=== PATIENT | female | born 1955 | race Caucasian/White ===

== ENCOUNTER 2017-09-18 12:24 | Day surgery (SDC) | payer OTHER ==
[2017-09-18 13:01] VITALS: RESP 16; TEMP 97.9
[2017-09-18] MEDS ORDERED: LACTATED RINGERS 1,000 ML IV ONE (13:07)
[2017-09-18] MEDS ORDERED: PROPOFOL 10 MG/ML 20 ML VIAL IV ONE (13:08)
[2017-09-18] MEDS ORDERED: LIDOCAINE 1% 20 ML VIAL (10MG/ML) FOR IV START INTRADERMA ONE (13:08)
--- NOTE | 2017-09-18 13:10 | P.GSHP ---
History of Present Illness H&P Date: 09/18/17 Chief Complaint: GERD, aspiration pneumonia This a 7-year-old female well-known to myself. Patient had a previous history of sleeve gastrectomy performed through 4 years ago. Patient had a recent hospital position to [facility] for pneumonia. She states that she's had some trouble with dysphagia complaints of epigastric pain. Patient presents today for EGD to evaluate her gastric sleeve Past Medical History Past Medical History: Asthma, Cancer, Diabetes Mellitus, GERD/Reflux, GI Bleed, Hyperlipidemia, Hypertension Additional Past Medical History / Comment(s): VOMITING AND HEART BURN, ESOPHAGEAL BLEED. ANEMIA/CHRONIC LYMPHOCYTIC LEUKEMIA. SEASONAL ALLERGIES., VARICOSE VEINS,ORAL STEROIDS JANUARY 2016 History of Any Multi-Drug Resistant Organisms: MRSA Date of last positivie culture/infection: 2011 MDRO Source:: left axilla Past Surgical History: Bariatric Surgery, Bladder Surgery, Bowel Resection, Hysterectomy, Orthopedic Surgery Additional Past Surgical History / Comment(s): GASTRIC SLEEVE. RIGHT KNEE ARTHROSCOPY, ORIF LEFT SHOULDER. HEMMOROIDS. PELVIC MASS REMOVED, WITH COLON RESECTION AND OVARIES REMOVED (BENIGN). Additional Past Anesthesia/Blood Transfusion Reaction / Comment(s): difficulty waking up one time.no problem with prior blood transfusion. Past Psychological History: Depression Smoking Status: Former smoker Past Alcohol Use History: Rare Additional Past Alcohol Use History / Comment(s): QUIT: 2009 SMOKED FOR 20 YRS. PPD: 2 Past Drug Use History: None Reported - Past Family History Mother Family Medical History: Hypertension Father Family Medical History: Diabetes Mellitus Medications and Allergies Home Medications Medication Instructions Recorded Confirmed Type Albuterol Nebulized [Ventolin 1 dose INHALATION QID PRN 03/07/16 03/27/16 History Nebulized] Albuterol Sulfate [Proventil Hfa] 2 puff INHALATION Q4H PRN 03/07/16 03/27/16 History Aspirin 81 mg PO DAILY 03/07/16 03/27/16 History Atorvastatin [Lipitor] 20 mg PO HS 03/07/16 03/27/16 History Budesonide [Pulmicort] 1 dose INHALATION BID 03/07/16 03/27/16 History Budesonide/Formoterol Fumarate 2 puff INHALATION BID 03/07/16 03/27/16 History [Symbicort 160-4.5 Mcg Inhaler] Docusate [Colace] 1 cap PO BID 03/07/16 03/27/16 History FLUoxetine HCL [PROzac] 40 mg PO QAM 03/07/16 03/27/16 History Ferrous Sulfate [Iron (65 MG 1 tab PO BID 03/07/16 03/27/16 History Elemental)] HYDROcodone/APAP 10-325MG [[place] 1 tab PO DAILY PRN 03/07/16 03/27/16 History 10-325] Hydrochlorothiazide 25 mg PO QAM 03/07/16 03/27/16 History Ibuprofen [Motrin] 800 mg PO BID 03/07/16 03/27/16 History Montelukast [Singulair] 10 mg PO HS 03/07/16 03/27/16 History Multivitamins, Thera [Multivitamin] 1 tab PO DAILY 03/07/16 03/27/16 History Omeprazole 40 mg PO AC-BRKFST #30 cap 03/12/16 03/27/16 Rx Calcium Citrate 250 mg PO BID 03/23/16 03/27/16 History Cyclobenzaprine [Flexeril] 10 mg PO HS 03/23/16 03/27/16 History HYDROcodone/APAP 7.5-325MG [[place] 1 each PO Q4H PRN #60 tab 03/27/16 Rx 7.5] Allergies Allergy/AdvReac Type Severity Reaction Status Date / Time bendamustine HCl Allergy Rash/Hives Verified 09/18/17 12:55 [From Treanda] codeine Allergy Rash/Hives Verified 09/18/17 12:55 rituximab [From Rituxan] Allergy Rash/Hives Verified 09/18/17 12:55 sulfamethoxazole Allergy Rash/Hives Verified 09/18/17 12:55 [From Bactrim] trimethoprim [From Bactrim] Allergy Rash/Hives Verified 09/18/17 12:55 Surgical - Exam Vital Signs Temp Pulse Resp BP Pulse Ox 97.9 F 75 16 147/77 94 L 09/18/17 13:00 09/18/17 13:00 09/18/17 13:00 09/18/17 13:00 09/18/17 13:00 - General well developed, no distress - Eyes PERRL - ENT normal pinna - Neck no masses - Respiratory normal expansion - Cardiovascular Rhythm: regular - Abdomen Mild epigastric tenderness Abdomen: soft Assessment and Plan Assessment: Mr. gastric sleeve History of dysphagia. We'll perform EGD.
[2017-09-18 13:12] LABS: Glucose,Whole Blood 164 mg/dL (75-99)
--- NOTE | 2017-09-18 13:21 | P.OP ---
Date of Procedure: 09/18/17 Preoperative Diagnosis: GERD Dysphagia Postoperative Diagnosis: Mild antral gastritis Severe esophagitis No evidence of sleeve stricture Procedure(s) Performed: EGD Anesthesia: MAC Surgeon: Collins Adam Pathology: other (Antrum, esophagus) Condition: stable Disposition: PACU Description of Procedure: The patient's placed on the endoscopy table in the lateral position. She received IV sedation. The gastric was placed patient's oropharynx and passed into the esophagus and stomach. The scope was then placed through the pylorus. The first and second portion of the duodenum appeared normal. The scope was then brought back into the antrum and this appeared minimally inflamed a biopsies performed. Scope was then brought back through the gastric sleeve. There is no incision any stricture or obstruction of the sleeve. The GE junction was at 38 cm.. The distal esophagus appeared grossly inflamed. This area is biopsied. There is evidence of a slight stricture of the GE junction due to reflux esophagitis. Several biopsies esophagus or performed. The proximal esophagus appeared normal. Scope was withdrawn for patient.
[2017-09-18] MEDS ORDERED: SUCRALFATE 1 GM TAB PO STA (13:32)
[2017-09-18 13:38] VITALS: BP 131/73; PULSE 84
== END 2017-09-18 14:23 | disposition home or self-care (01) ==
LOC: ORWHC2ENDO 12:24
PROVIDERS: ATTEND Surgery
DX: K29.50 Unspecified chronic gastritis without bleeding (principal); K22.10 Ulcer of esophagus without bleeding; K21.0 Gastro-esophageal reflux disease with esophagitis; Z98.84 Bariatric surgery status; E11.9 Type 2 diabetes mellitus without complications; E78.5 Hyperlipidemia, unspecified; I10 Essential (primary) hypertension; F32.9 Major depressive disorder, single episode, unspecified; J44.9 Chronic obstructive pulmonary disease, unspecified; Z86.14 Personal history of Methicillin resistant Staphylococcus aureus infection; Z79.1 Long term (current) use of non-steroidal anti-inflammatories (NSAID); Z79.82 Long term (current) use of aspirin; Z79.51 Long term (current) use of inhaled steroids; Z79.899 Other long term (current) drug therapy; Z88.1 Allergy status to other antibiotic agents; Z88.2 Allergy status to sulfonamides; Z88.8 Allergy status to other drugs, medicaments and biological substances; Z87.891 Personal history of nicotine dependence
CPT/HCPCS: 88305; 88342; 43239; J2704

== ENCOUNTER → 2018-01-15 | Outpatient (CLI) | payer OTHER ==
[2018-01-15 10:13] LABS: Basophils # (A) 0.1 k/uL (0-0.2); Basophils % (A) 0 %; Eosinophils # (A) 0.1 k/uL (0-0.7); Eosinophils % (A) 0 %; HCT 39.4 % (34.0-46.0); HGB 11.8 gm/dL (11.4-16.0); Hypochromasia Moderate; Lymphocytes # (A) 2.8 k/uL (1.0-4.8); Lymphocytes % (A) 17 %; MCH 27.3 pg (25.0-35.0); MCHC 30.1 g/dL (31.0-37.0); MCV 90.8 fL (80.0-100.0); Mean Platelet Volume 6.8; Monocytes # (A) 0.5 k/uL (0-1.0); Monocytes % (A) 3 %; Neutrophils # (A) 12.5 k/uL (1.3-7.7); Neutrophils % (A) 78 %; Platelet Count 327 k/uL (150-450); RBC 4.34 m/uL (3.80-5.40); RDW 14.2 % (11.5-15.5); WBC 16.1 k/uL (3.8-10.6)
[2018-01-15 10:16] LABS: Appearance,Urine Clear (Clear); Bilirubin,Urine Negative (Negative); Blood,Urine Small (Negative); Color,Urine Yellow; Glucose,Urine (UA) Negative (Negative); Ketones,Urine Negative (Negative); Leukocyte Esterase,Urine Trace (Negative); Mucus,Urine Few /hpf; Nitrite,Urine Negative (Negative); Protein,Urine Trace (Negative); RBC,Urine 14 /hpf (0-5); Specific Gravity,Urine 1.031 (1.001-1.035); Squamous Epithelial Cell,Urine 4 /hpf (0-4); WBC,Urine 3 /hpf (0-5)
[2018-01-15 10:40] LABS: Anion Gap 10 mmol/L; Blood Urea Nitrogen 19 mg/dL (7-17); Carbon Dioxide 34 mmol/L (22-30); Chloride 95 mmol/L (98-107); Glucose 140 mg/dL (74-99); Potassium 4.3 mmol/L (3.5-5.1); Sodium 139 mmol/L (137-145)
--- NOTE | 2018-01-15 11:13 | XR ---
EXAMINATION TYPE: XR chest 2V DATE OF EXAM: 01/15/2018 COMPARISON: None HISTORY: 62-year-old female presurgical testing for spine TECHNIQUE: Frontal and lateral views FINDINGS: Clinical data screw fixation proximal left humerus. Accentuated mid thoracic kyphosis likely secondar y to vertebral compression deformities. Osteopenia limits assessment on this long exposure. Heart upper limits of normal in size. Mild elongation of the thoracic aorta. Mild diffuse interstitia l prominence is a chronic appearance. Strandy areas of atelectasis mid to lower left lung. No tatiana c onsolidation or pleural effusion seen. IMPRESSION: 1. Chronic appearing changes with strandy areas of atelectasis on the left. No definite acute process . 2. Accentuated mid thoracic kyphosis secondary to vertebral compression deformities.
== END | disposition home or self-care (01) ==
LOC: LABPAT 09:21
PROVIDERS: ATTEND Orthopaedic Surgery Orthopaedic Surgery of the Spine
DX: Z01.818 Encounter for other preprocedural examination (principal); S22.050A Wedge compression fracture of T5-T6 vertebra, initial encounter for closed fracture; J98.11 Atelectasis; S22.060A Wedge compression fracture of T7-T8 vertebra, initial encounter for closed fracture; M40.294 Other kyphosis, thoracic region; Z79.01 Long term (current) use of anticoagulants
CPT/HCPCS: 36415; 71046; 80048; 81001; 85025; 85610; 85730; 86850; 86900; 86901

== ENCOUNTER → 2018-01-21 | Outpatient (CLI) | payer MEDICARE, OTHER ==
[2018-01-21 12:11] LABS: HCT 36.9 % (34.0-46.0); HGB 11.2 gm/dL (11.4-16.0); Hypochromasia Moderate; MCH 27.8 pg (25.0-35.0); MCHC 30.4 g/dL (31.0-37.0); MCV 91.4 fL (80.0-100.0); Mean Platelet Volume 7.2; Platelet Count 340 k/uL (150-450); RBC 4.03 m/uL (3.80-5.40); RDW 14.9 % (11.5-15.5)
[2018-01-21 12:18] LABS: Appearance,Urine Clear (Clear); Bacteria,Urine Rare /hpf; Bilirubin,Urine Negative (Negative); Blood,Urine Negative (Negative); Color,Urine Yellow; Glucose,Urine (UA) 2+ (Negative); Hyaline Casts,Urine 14 /lpf (0-2); Ketones,Urine Negative (Negative); Leukocyte Esterase,Urine Trace (Negative); Mucus,Urine Rare /hpf; Nitrite,Urine Negative (Negative); PH, Urine 6.5 (5.0-8.0); Protein,Urine 1+ (Negative); RBC,Urine 3 /hpf (0-5); Specific Gravity,Urine 1.022 (1.001-1.035); Squamous Epithelial Cell,Urine 4 /hpf (0-4); WBC,Urine 2 /hpf (0-5)
== END | disposition home or self-care (01) ==
LOC: LABPAT 11:44
PROVIDERS: ATTEND Orthopaedic Surgery Orthopaedic Surgery of the Spine
DX: Z01.812 Encounter for preprocedural laboratory examination (principal)
CPT/HCPCS: 36415; 81001; 85027

== ENCOUNTER 2018-01-22 12:11 | Day surgery (SDC) | payer MEDICARE, OTHER ==
[2018-01-20 10:08] VITALS: BMI 35.0
[~2018-01-22 12:11] MED LIST: HYDROmorphone 0.5 MG/0.5 ML SYRINGE IVP PRN; LIDOCAINE 1% 20 ML VIAL (10MG/ML) FOR IV START INTRADERMA PRN; ONDANSETRON 4 MG/2 ML VIAL IVP ONE; SCOPOLAMINE 1.5MG/72HR PATCH TRANSDERM ONE; ceFAZolin IN SWFI 2 GM/20 ML SYRINGE IVP ONE
[2018-01-22] MEDS: LACTATED RINGERS 1,000 ML IV SCH (13:45)
[2018-01-22] MEDS ORDERED: HYDROmorphone 1 MG/ML 1 ML SYRINGE IVP ONE (13:53)
[2018-01-22 14:16] LABS: Glucose,Whole Blood 166 mg/dL (75-99)
[2018-01-22] MEDS ORDERED: IOHEXOL 350 MG/ML 50ML BOTTLE MISCELLANE ONE (16:51)
[2018-01-22] MEDS ORDERED: fentaNYL (PF) 50 MCG/ML 2 ML AMP ONE (16:57)
[2018-01-22] MEDS ORDERED: ALBUTEROL INHALER 60 PUFF/8 GM INHALER INHALATION ONE (16:57)
[2018-01-22] MEDS ORDERED: HYDROCORTISONE SUCCINATE 100 MG/2 ML VIAL ONE (16:57)
[2018-01-22] MEDS ORDERED: SUCCINYLCHOLINE CHLORIDE 100 MG/5 ML SYR IV ONE (16:57)
[2018-01-22] MEDS ORDERED: MIDAZOLAM 2 MG/2 ML VIAL ONE (16:57)
[2018-01-22] MEDS ORDERED: LIDOCAINE 1% INJ 10MG/ML (20 ML MDV) ONE (16:57)
[2018-01-22] MEDS ORDERED: PROPOFOL 10 MG/ML 20 ML VIAL IV ONE (16:57)
[2018-01-22] MEDS ORDERED: BUPIVACAINE (PF) 0.5% 30 ML VIAL SQ ONE ×2 (17:47)
[2018-01-22] MEDS ORDERED: HYDROmorphone 0.5 MG/0.5 ML SYRINGE IVP PRN (18:19)
[2018-01-22] MEDS ORDERED: DIAZEPAM 5 MG TAB PO PRN (18:19)
[2018-01-22] MEDS ORDERED: BENZOCAINE/MENTHOL LOZENG 1 EACH LOZENGE MUCOUS MEM PRN (18:19)
[2018-01-22] MEDS ORDERED: ONDANSETRON 4 MG/2 ML VIAL IVP PRN (18:20)
[2018-01-22] MEDS ORDERED: ALBUTEROL NEBULIZED 2.5 MG/3 ML INHALATION PRN (18:22)
--- NOTE | 2018-01-22 18:30 | P.OP ---
Date of Procedure: 01/22/18 Preoperative Diagnosis: T6 and T8 subacute vertebral compression fractures Thoracic back pain Osteoporosis Postoperative Diagnosis: Same Anesthesia: GETA Pathology: other (T6 and T8 vertebral body biopsy sent to pathology separately in formalin) Condition: stable Disposition: PACU Description of Procedure: BRIEF OPERATIVE NOTE Preoperative Diagnosis: Vertebral compression fractures T6 and T8, subacute osteoporotic Postoperative Diagnosis: Same Procedure: Kyphoplasty T6 and T8 Vertebral body biopsy T6 and T8 Use of biplanar fluoroscopic guidance Surgeon: Dr. Mosher Head Filter Press Tender: Sean Tran is present throughout the entire the case persistence during positioning, dissection, exposure, visualization, and all crucial elements of the case as well as closure. Anesthesia: General anesthesia Estimated blood loss: Less than 10 mL Specimen: Vertebral body biopsy sent to pathology in formalin separately of T6 and T8 vertebral bodies Complications: None apparent Components implanted: Bone cement Disposition: To recovery room in good stable condition. OPERATIVE INDICATIONS The patient has been having issues in their back ever since sustaining an injury. She has osteoporosis and has a chronic senile compression fracture at T7. She is found have subacute compression fractures at T6 and T8 which were felt to be the source of significant thoracic back pain for her. She has been having severe back pain despite brace use and conservative treatment and medications. The patient has been through conservative treatment. They attempted conservative care with bracing however they're not having any benefit despite brace use. They continue to have significant pain and debility due to their fracture. We discussed various treatment options including surgery, and the patient wishes to proceed with surgery We discussed the risk, patient's alternatives and benefits of surgery including but not limited to, risk of bleeding risk of infection, risk of need for further surgery, risk of decreased , loss of motion, loss of function, cement extravasation, nerve damage, paralysis, heart attack, blindness and . OPERATIVE SUMMARY After discussing all the risks, patient alternatives and benefits at length, the patient elected to proceed with surgical intervention, signed informed consent, and presented for their procedure. 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 She is found to be stable for the procedure. The patient was seen and examined in the preoperative holding area and the surgical site was marked. The patient was given antibiotics and brought to the operating room. The patient was sedated and intubated by anesthesia in with utilization of a glide scope and bronchoscope. The patient was positioned on to the operating room table in a prone position on the appropriate well-padded and well molded bilateral chest rolls. We were careful to pad any bony prominences and pressure points. We were careful to maintain the patient's cervical spine and good neutral alignment and position throughout. We used 2 C-arm machines to establish biplanar fluoroscopic guidance in AP and lateral positions. We were able to localize the fractures appropriately at T6, 7 and 8. The chronic senile compression fracture T7 was noted and the subacute compression fractures at T6 and T8 were also noted. The patient was prepped and draped in a normal standard fashion. An appropriate timeout and keystone protocol performed. We were able to proceed with the surgery. The local wound area was infiltrated with local anesthetic. An incision was made over the lateral aspect of the pedicle over the appropriate levels with a small 2 mm stab incision. I started first at T8 and then moved to T6. Intraoperative fluoroscopy was taken which showed a marker at the appropriate level at both T8 and T6. With the appropriate level positively confirmed, I was able to position a sharp trocar over the lateral aspect of the pedicle. As able to advance the trocar into the pedicle and into the posterior aspect of vertebral body being careful to avoid penetration cephalad caudad or medially. The trocar was placed appropriately into the posterior aspect of vertebral body at the appropriate levels on the right at T6 and T8. This was confirmed with C-arm guidance. With the trocar intact I was then able to take a bone biopsy with a biopsy punch or a bony drill. The biopsy specimen was passed off to be sent to pathology in formalin. I was then able to place the kyphoplasty balloon within the vertebral body. The position was checked on C-arm. I was able to inflate the balloon under low pressure and visualization with C-arm. The balloon started enclosed within the vertebral body but did show evidence of some penetration at the inferior endplate of both vertebral bodies. The cement was prepared. With the cement at appropriate working condition the balloons were deflated and removed. I was able to place bony cement with trocar with the cement delivery device under low pressure. It had some fill within the vertebral body. There is no evidence of any extravasation of the cement posteriorly toward the canal. The cement was injected at the appropriate levels of T6 and T8. Both areas had some placement of the cement within the vertebral body. Both there is also had some extrusion into the inferior endplate and into the disc space below. I was able place proximally 2 and half cc in each of the vertebral bodies The cement was allowed to cure appropriately. The trochars removed and final images were taken on C- arm. This showed the cement at the appropriate levels of T6 and T8 without evidence of extrusion posteriorly. We were able to proceed with closure. The wound was cleaned and dried and dressed with the appropriate dressing. The drapes were broken down. The patient was gently rolled back onto their hospital bed being careful to maintain their cervical spine and good neutral alignment and position. They were woken up by anesthesia, extubated, and brought to the recovery room in good stable condition. The patient will be admitted to the hospital for observation and for appropriate postoperative care, medical management and monitoring. We will continue to follow them closely about the postoperative course.
[2018-01-22] MEDS ORDERED: BUDESONIDE 0.5 MG/2 ML NEBU INHALATION SCH (20:00)
[2018-01-22] MEDS: HYDROmorphone 0.5 MG/0.5 ML SYRINGE IVP PRN ×2 (20:20→23:20)
[2018-01-22] MEDS: SODIUM CHLORIDE 0.9% 1,000 ML IV SCH (20:32)
[2018-01-22] MEDS: ALBUTEROL NEBULIZED 2.5 MG/3 ML INHALATION SCH (20:32)
[2018-01-22] MEDS: SYMBICORT 160-4.5 MCG INHALER INHALATION SCH (20:32)
[2018-01-22] MEDS ORDERED: ATORVASTATIN 20 MG TAB PO SCH (21:00)
[2018-01-22] MEDS: DOCUSATE 100 MG CAP PO SCH (21:37)
[2018-01-22] MEDS: CYCLOBENZAPRINE 10 MG TAB PO SCH (21:38)
[2018-01-22] MEDS: ceFAZolin IN SWFI 2 GM/20 ML SYRINGE IVP SCH (23:23)
[2018-01-23] MEDS: oxyCODONE-APAP 5-325MG 1 EACH TAB PO PRN ×2 (03:00→09:48)
[2018-01-23] MEDS: HYDROmorphone 0.5 MG/0.5 ML SYRINGE IVP PRN ×2 (04:14→08:03)
[2018-01-23] MEDS: SYMBICORT 160-4.5 MCG INHALER INHALATION SCH (07:23)
[2018-01-23] MEDS: ALBUTEROL NEBULIZED 2.5 MG/3 ML INHALATION SCH (07:23)
[2018-01-23 07:57] VITALS: BP 147/84; PULSE 82; RESP 14; TEMP 98.2
[2018-01-23] MEDS: LACTATED RINGERS 1,000 ML IV SCH (08:03)
[2018-01-23] MEDS: CYCLOBENZAPRINE 10 MG TAB PO SCH (08:03)
[2018-01-23] MEDS: SODIUM CHLORIDE 0.9% 1,000 ML IV SCH (08:15)
[2018-01-23] MEDS ORDERED: SENNOSIDES-DOCUSATE SODIUM 1 EACH TAB PO SCH (09:00)
[2018-01-23] MEDS ORDERED: ASPIRIN 81 MG PO SCH (09:00)
[2018-01-23] MEDS ORDERED: FERROUS SULFATE 325 MG TAB PO SCH (09:00)
[2018-01-23] MEDS ORDERED: FLUoxetine HCL 20 MG CAP PO SCH (09:00)
[2018-01-23] MEDS ORDERED: FUROSEMIDE 40 MG TAB PO SCH (09:00)
--- NOTE | 2018-01-23 09:28 | FL ---
Fluoroscopy INDICATION: Pain FINDINGS: Fluoroscopy time: 66 seconds. Images obtained: 4. IMPRESSIONS: 1. Documentation of fluoroscopy.
--- NOTE | 2018-01-23 09:28 | XR ---
EXAMINATION TYPE: XR thoracic spine 2V DATE OF EXAM: 01/22/2018 COMPARISON: NONE HISTORY: Kyphoplasty TECHNIQUE: Images were obtained intraoperatively. FINDINGS: 4 images are presented over the thoracic region. IMPRESSION: 1. Fluoroscopy for procedure documentation.
[2018-01-23] MEDS: ceFAZolin IN SWFI 2 GM/20 ML SYRINGE IVP SCH (09:44)
[2018-01-23] MEDS: DOCUSATE 100 MG CAP PO SCH (09:46)
--- NOTE | 2018-01-23 09:52 | P.DS ---
Providers Date of admission: January 22 2018 Attending physician: Jose C Mosher Primary care physician: [facility] Course: The patient presented on the day of admission as per her operative note. she underwent kyphoplasty at T8 and T6 for her subacute osteoporotic compression fractures and thoracic back pain which had failed conservative treatment. She says her upper back is feeling somewhat better but her lower Significant pain. She is not having any changes in her bowel bladder function. She's not having any changes in her lower extremity function. She denies any new neurologic changes. Physical Exam The incision site is clean dry and intact. There is no erythema no drainage. There is no purulence no evidence of infection. The 2 small incisions appear to be healing well. Abdomen soft and nontender. Chest has good excursion with deep inspiration and expiration. The patient has active and passive range of motion intact at the upper and lower extremities. There is no acute change in neurologic status. She has sustained dorsal flexion and plantar flexion and EHL at her lower extremities equal bilaterally Hospital Course Postoperative day #1 status post thoracic kyphoplasty at T6 and T8 for her subacute supra compression fractures. The patient has been making good progress postoperatively. Her thoracic pain seems to have improved with her procedure but she still has low back pain due to other issues being addressed further on outpatient basis at this point. They have completed the prophylactic antibiotics without any signs or symptoms of infection. The patient has been able to advance their diet, and is tolerating diet adequately. The pain was initially controlled with IV medications and is now controlled appropriately with oral medications. The patient has been able to increase their mobilization. The patient has progressed appropriately. I think they are in good stable condition for discharge today. They will be sent home with appropriate prescriptions. I answered their questions to the best of my ability in a language that they can understand and they are agreeable with the plan. They will follow up as directed in approximately 2 weeks or sooner if she is having problems. Patient Condition at Discharge: Fair Plan - Discharge Summary New Discharge Prescriptions: New oxyCODONE HCL/ACETAMINOPHEN [Percocet 5-325 mg] 1 tab PO Q8HR PRN #90 tab PRN Reason: Severe Pain No Action Multivitamins, Thera [Multivitamin] 1 tab PO DAILY Montelukast [Singulair] 10 mg PO HS Docusate [Colace] 1 cap PO BID Budesonide/Formoterol Fumarate [Symbicort 160-4.5 Mcg Inhaler] 2 puff INHALATION BID Atorvastatin [Lipitor] 20 mg PO HS Albuterol Sulfate [Proventil Hfa] 2 puff INHALATION Q4H PRN PRN Reason: Shortness Of Breath Or Wheezing Albuterol Nebulized [Ventolin Nebulized] 1 dose INHALATION BID Budesonide [Pulmicort] 1 dose INHALATION BID Cyclobenzaprine [Flexeril] 10 mg PO TID Omeprazole 40 mg PO BID #60 capsule.dr Oxybutynin Chloride [Ditropan] 5 mg PO DAILY Aspirin [Adult Low Dose Aspirin EC] 81 mg PO DAILY Pioglitazone [Actos] 15 mg PO DAILY Ferrous Sulfate [Iron (65 MG Elemental)] 325 mg PO DAILY Furosemide [Lasix] 40 mg PO DAILY Potassium Chloride [Klor-Con 10] 10 meq PO BID Insulin Detemir [Levemir] 12 unit SQ HS Losartan [Cozaar] 50 mg PO DAILY predniSONE 20 mg PO Q48H predniSONE 40 mg PO Q48H Ciprofloxacin HCl [Cipro] 500 mg PO BID Immunoglobulin 1 dose IV Q3M HYDROcodone/APAP 7.5-325MG [[place] 7.5-325] 1 tab PO Q8HR PRN PRN Reason: Pain Scale 6 To 10 FLUoxetine HCL [PROzac] 40 mg PO DAILY fentaNYL 25MCG/HR PATCH [Durages[place] 25MCG/HR] 1 patch TRANSDERM DIRECTED Discharge Medication List Albuterol Nebulized [Ventolin Nebulized] 1 dose INHALATION BID 03/07/16 [History ] Albuterol Sulfate [Proventil Hfa] 2 puff INHALATION Q4H PRN 03/07/16 [History] Atorvastatin [Lipitor] 20 mg PO HS 03/07/16 [History] Budesonide [Pulmicort] 1 dose INHALATION BID 03/07/16 [History] Budesonide/Formoterol Fumarate [Symbicort 160-4.5 Mcg Inhaler] 2 puff INHALATION BID 03/07/16 [History] Docusate [Colace] 1 cap PO BID 03/07/16 [History] Montelukast [Singulair] 10 mg PO HS 03/07/16 [History] Multivitamins, Thera [Multivitamin] 1 tab PO DAILY 03/07/16 [History] Cyclobenzaprine [Flexeril] 10 mg PO TID 03/23/16 [History] Omeprazole 40 mg PO BID #60 capsule. 09/18/17 [Rx] Aspirin [Adult Low Dose Aspirin EC] 81 mg PO DAILY 10/28/17 [History] Ferrous Sulfate [Iron (65 MG Elemental)] 325 mg PO DAILY 10/28/17 [History] Furosemide [Lasix] 40 mg PO DAILY 10/28/17 [History] Insulin Detemir [Levemir] 12 unit SQ HS 10/28/17 [History] Losartan [Cozaar] 50 mg PO DAILY 10/28/17 [History] Oxybutynin Chloride [Ditropan] 5 mg PO DAILY 10/28/17 [History] Pioglitazone [Actos] 15 mg PO DAILY 10/28/17 [History] Potassium Chloride [Klor-Con 10] 10 meq PO BID 10/28/17 [History] Ciprofloxacin HCl [Cipro] 500 mg PO BID 01/20/18 [History] Immunoglobulin 1 dose IV Q3M 01/20/18 [History] predniSONE 20 mg PO Q48H 01/20/18 [History] predniSONE 40 mg PO Q48H 01/20/18 [History] FLUoxetine HCL [PROzac] 40 mg PO DAILY 01/22/18 [History] HYDROcodone/APAP 7.5-325MG [[place] 7.5-325] 1 tab PO Q8HR PRN 01/22/18 [History] fentaNYL 25MCG/HR PATCH [[place] 25MCG/HR] 1 patch TRANSDERM DIRECTED 01/22 [History] oxyCODONE HCL/ACETAMINOPHEN [Percocet 5-325 mg] 1 tab PO Q8HR PRN #90 tab [Rx] Follow up Appointment(s)/Referral(s): Jose C Mosher DO [Doctor of Osteopathic Medicine] - 2 Weeks (With Sean Gonzalez at Dr. Mosher's office) Activity/Diet/Wound Care/Special Instructions: Keep sites of wounds clean. May shower with waterproof Tegaderm intact. On Saturday May shower with area uncovered at least Steri-Strips intact and allow them to fray off on their own. May ambulate to tolerance. No repetitive bending twisting or lifting. No heavy or rigorous activity. Discharge Disposition: HOME SELF-CARE
== END 2018-01-23 11:00 | disposition home or self-care (01) ==
LOC: OR 12:11 → 3SUR 18:18 → OR 01-23 11:00
PROVIDERS: ATTEND Orthopaedic Surgery Orthopaedic Surgery of the Spine
DX: M80.08XA Age-related osteoporosis with current pathological fracture, vertebra(e), initial encounter for fracture (principal); I10 Essential (primary) hypertension; E78.5 Hyperlipidemia, unspecified; E11.9 Type 2 diabetes mellitus without complications; Z79.4 Long term (current) use of insulin; C91.10 Chronic lymphocytic leukemia of B-cell type not having achieved remission; K21.9 Gastro-esophageal reflux disease without esophagitis; F32.9 Major depressive disorder, single episode, unspecified; Z88.8 Allergy status to other drugs, medicaments and biological substances; Z79.51 Long term (current) use of inhaled steroids; Z79.52 Long term (current) use of systemic steroids; Z79.899 Other long term (current) drug therapy; J45.909 Unspecified asthma, uncomplicated; Z87.891 Personal history of nicotine dependence; Z88.1 Allergy status to other antibiotic agents; Z88.2 Allergy status to sulfonamides; Z79.82 Long term (current) use of aspirin
CPT/HCPCS: 94640 ×4; 94760; 88307; 88311; 72070; 22513; 22515; C1713; J2250; J1720; J2405; J2001; J3010; J1170 ×3; J0330; J2704; Q9967; J0690 ×2; 86850; 86900; 86901

== ENCOUNTER → 2018-02-14 | Outpatient (CLI) | payer MEDICARE, OTHER ==
[2018-02-14 11:24] LABS: Appearance,Urine Clear (Clear); Bilirubin,Urine Negative (Negative); Blood,Urine Negative (Negative); Color,Urine Colorless; Glucose,Urine (UA) Negative (Negative); Ketones,Urine Negative (Negative); Leukocyte Esterase,Urine Negative (Negative); Nitrite,Urine Negative (Negative); Protein,Urine Negative (Negative); Specific Gravity,Urine 1.006 (1.001-1.035); Urobilinogen,Urine <2.0 mg/dL (<2.0)
[2018-02-14 11:43] LABS: Basophils % (A) 0 %; Eosinophils # (A) 0.1 k/uL (0-0.7); Eosinophils % (A) 0 %; HCT 39.6 % (34.0-46.0); HGB 12.6 gm/dL (11.4-16.0); Hypochromasia Slight; Lymphocytes # (A) 3.7 k/uL (1.0-4.8); Lymphocytes % (A) 17 %; MCH 27.8 pg (25.0-35.0); MCHC 31.8 g/dL (31.0-37.0); MCV 87.3 fL (80.0-100.0); Mean Platelet Volume 6.9; Monocytes # (A) 0.7 k/uL (0-1.0); Monocytes % (A) 3 %; Neutrophils # (A) 16.8 k/uL (1.3-7.7); Neutrophils % (A) 78 %; Platelet Count 265 k/uL (150-450); RBC 4.53 m/uL (3.80-5.40); RDW 14.9 % (11.5-15.5); WBC 21.6 k/uL (3.8-10.6)
[2018-02-14 11:54] LABS: Albumin 3.8 g/dL (3.5-5.0); Calcium 9.8 mg/dL (8.4-10.2); Potassium 4.2 mmol/L (3.5-5.1); Total Bilirubin 0.4 mg/dL (0.2-1.3); Total Protein 6.1 g/dL (6.3-8.2)
[2018-02-14 11:55] LABS: Prothrombin Time 9.8 sec (9.0-12.0)
[2018-02-14 12:05] LABS: Partial Thromboplastin Time 20.5 sec (22.0-30.0)
== END | disposition home or self-care (01) ==
LOC: LABPAT 10:54
PROVIDERS: ATTEND Orthopaedic Surgery Orthopaedic Surgery of the Spine
DX: Z01.818 Encounter for other preprocedural examination (principal); Z01.812 Encounter for preprocedural laboratory examination; S22.089A Unspecified fracture of T11-T12 vertebra, initial encounter for closed fracture
CPT/HCPCS: 36415; 80053; 81003; 85025; 85610; 85730; 87070

== ENCOUNTER → 2018-02-18 | Outpatient (CLI) | payer MEDICARE, OTHER ==
[2018-02-18 14:04] LABS: ALT 36 U/L (9-52); AST 21 U/L (14-36); Albumin 3.8 g/dL (3.5-5.0); Alkaline Phosphatase 178 U/L (38-126); Anion Gap 9 mmol/L; Blood Urea Nitrogen 22 mg/dL (7-17); Calcium 9.8 mg/dL (8.4-10.2); Carbon Dioxide 38 mmol/L (22-30); Chloride 94 mmol/L (98-107); Cholesterol 190 mg/dL (<200); Glucose 197 mg/dL (74-99); HDL Cholesterol 72 mg/dL (40-60); LDL Cholesterol,Calculated 78 mg/dL (0-99); Potassium 4.5 mmol/L (3.5-5.1); Sodium 141 mmol/L (137-145); Total Bilirubin 0.5 mg/dL (0.2-1.3); Total Protein 6.1 g/dL (6.3-8.2); Triglycerides 200 mg/dL (<150)
[2018-02-18 14:19] LABS: T4, Free (Free Thyroxine) 1.33 ng/dL (0.78-2.19)
[2018-02-18 22:38] LABS: Hemoglobin A1C 7.6 % (4.0-6.0)
== END | disposition home or self-care (01) ==
LOC: LABWHC1 12:46
PROVIDERS: ATTEND Internal Medicine
DX: E11.65 Type 2 diabetes mellitus with hyperglycemia (principal)
CPT/HCPCS: 36415; 80053; 80061; 82043; 82306; 82570; 83036; 84439; 84443